=== PATIENT | male | born 1975 | race African-American/Black ===

== ENCOUNTER 2023-02-05 06:27 | Emergency (ER) | payer BC ==
[~2023-02-05] VITALS: Ht 190.5 cm; Wt 155.0 kg
[2023-02-05 07:21] LABS: HEMATOCRIT. 37.6 % (42.0-52.0); HEMOGLOBIN. 11.8 g/dL (14.0-18.0); MEAN CORPUSCULAR HEMOGLOBIN 29.4 pg (28.0-32.0); MEAN CORPUSCULAR HGB CONC 31.5 g/dL (31.0-37.0); MEAN CORPUSCULAR VOLUME 93.3 fL (80.0-94.0); MEAN PLATELET VOLUME 7.5 fl (7.4-10.4); PLATELET 346 x1000/uL (130-400); RED BLOOD CELL COUNT 4.03 mill/uL (4.7-6.1); RED CELL DISTRIBUTION WIDTH 14.3 % (11.6-14.6); WHITE BLOOD COUNT 13.7 x1000/uL (4.5-11.0)
[2023-02-05 07:28] LABS: DIFFERENTIAL COMMENT 1
[2023-02-05 07:33] VITALS: O2SAT 99
[2023-02-05 07:42] LABS: ALANINE AMINOTRANSFERASE 18 IU/L (10-49); ALBUMIN 4.2 g/dL (3.2-4.8); ASPARTATE AMINOTRANSFERASE 20 IU/L (<34); BILIRUBIN TOTAL 0.5 mg/dL (0.1-1.0); CALCIUM 9.5 mg/dL (8.7-10.4); CARBON DIOXIDE 26 mEq/L (21-32); CHLORIDE 106 mEq/L (98-107); CREATININE 1.1 mg/dL (0.6-1.3); GLUCOSE 130 mg/dL (70-105); POTASSIUM 3.9 mEq/L (3.5-5.1); PROTEIN TOTAL 7.6 g/dL (6.0-8.3); SODIUM 139 mEq/L (136-145); UREA NITROGEN BLOOD 12 mg/dL (9-23)
[2023-02-05 08:15] LABS: CLARITY URINE CLOUDY (CLEAR); COLOR URINE YELLOW (YELLOW); GLUCOSE URINE NEGATIVE (NEGATIVE); KETONES URINE NEGATIVE (NEGATIVE); LEUKOCYTE ESTERASE URINE 2+ (NEGATIVE); NITRITE URINE NEGATIVE (NEGATIVE); OCCULT BLOOD URINE NEGATIVE (NEGATIVE); PH URINE 8.5 (4.5-8.0); PROTEIN URINE 1+ (NEGATIVE); SPECIFIC GRAVITY URINE 1.029 (1.005-1.030)
[2023-02-05 08:19] LABS: PLATELET ESTIMATE NORMAL
[2023-02-05 08:34] LABS: BACTERIA URINE FEW; RBC URINE 0-2 /hpf (0-2); SQUAMOUS EPITHELIAL CELL URINE FEW /lpf (RARE/1+); WBC URINE 50-100 /hpf (0-2); YEAST URINE NONE SEEN
[2023-02-05] MEDS ORDERED: LEVO-65 MT (09:19)
[2023-02-05] MEDS ORDERED: IBUP-2028 MT (09:20)
[2023-02-05] MEDS ORDERED: LIDOCAINE HCL 1% 20ML VIAL (Pyxis) INJ INFIL ONE (09:30)
[2023-02-05] MEDS ORDERED: IBUPROFEN 600MG TABLET PO ONE (09:30)
[2023-02-05] MEDS ORDERED: CEFTRIAXONE SODIUM 1 G/VIAL IM ONE (09:30)
[2023-02-05 10:02] VITALS: BP 158/89; PULSE 96; RESP 18; TEMP 99.3
== END 2023-02-05 10:16 | disposition home or self-care (01) ==
LOC: ER 06:27
DX: N45.1 Epididymitis (principal); N45.2 Orchitis; J45.909 Unspecified asthma, uncomplicated; Z98.890 Other specified postprocedural states
CPT/HCPCS: 99285; 93976; 80053; 81003; 85025; 86850; 86900; 86901; 87086; 36415; 76870; 96372; J0696; J3490